=== PATIENT | female | born 2000 | race Caucasian/White ===

== ENCOUNTER 2023-01-27 20:57 | Emergency (ER) | payer OTHER, SELFPAY ==
[2023-01-27 21:00] VITALS: BP 132/86; PULSE 68; RESP 18; TEMP 36.6; O2SAT 100
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
== END 2023-01-27 22:34 | disposition home or self-care (01) ==
PROVIDERS: Emergency Provider Emergency Medicine; PCP Family Medicine
DX: S20.212A Contusion of left front wall of thorax, initial encounter (principal); W50.1XXA Accidental kick by another person, initial encounter
CPT/HCPCS: 71046; 99283

== ENCOUNTER 2023-07-18 12:03 | Outpatient (OUT) | payer SELFPAY ==
[2023-07-18 12:50] LABS: HCG Quantitative 18 mIU/mL
== END 2023-07-18 12:04 | disposition home or self-care (01) ==
LOC: LAB 12:05
PROVIDERS: PCP Family Medicine
DX: N92.6 Irregular menstruation, unspecified (principal)
CPT/HCPCS: 36415; 84702

== ENCOUNTER 2023-08-14 14:13 | Emergency (ER) | payer SELFPAY ==
[2023-08-14 14:28] VITALS: BP 122/73; PULSE 96; RESP 20; TEMP 36.6; O2SAT 99; BMI 19.6
--- NOTE | 2023-08-14 14:37 | US_ITS ---
[address] [address] Patient Name: TACOS DE LEÓN MRN: [id number] date: 2000 Sex: F Assigned Patient Location: ER Current Patient Location: ER Accession/Order Number: [id number] Exam Date: 08/14/2023 15:30 Report Date: 08/14/2023 16:35 At the request of: ANNEMARIE PUGA Procedure: US OB transvaginal EXAMINATION: US OB transvaginal HISTORY: vaginal bleeding , cramping COMPARISON: No relevant comparison available. FINDINGS: GESTATIONAL SAC: Present and normal appearing. YOLK SAC: Present and normal appearing. POLE: Present and normal appearing. CARDIAC: Present. UTERUS: Heterogeneous thickened endometrium, 14 mm. OVARIES: Right: Normal. Left: Normal. CERVIX: 4.7 cm in length and closed. CUL-DE-SAC: Normal. OTHER: None. AGE BY LMP: 8 weeks 6 days CRISTOFER BY LMP: 03/19/2024 AGE BY US CRL: Not applicable CRISTOFER BY US CRL: US/US OB transvaginal IMPRESSION: 1. Thickened heterogeneous endometrium with no intrauterine or extrauterine gestational sac; spontaneous suspected. Electronically authenticated by: DILLON SHARIF Date: 08/14/2023 16:35
--- NOTE | 2023-08-14 14:52 | ED.PREGNANC1 ---
HPI - General Chief complaint: Vaginal Bleeding Stated complaint: POST OP COMPLICATIONS Time Seen by Provider: 08/14/23 14:37 Source: patient Mode of arrival: walk-in Limitations: no limitations History of Present Illness HPI Narrative: Patient is a 22-year-old female who presents to the emergency department for vaginal pain and pelvic pain with bleeding. She was 6 weeks and 4 days ago took an pill in [place]. She states she was told she would have cramping and bleeding and she had minimal pain and bleeding over the weekend. She states for the last 2 days she has had severe pain, moderate bleeding and clotting. She has had no fevers or vomiting. No urinary symptoms. She does not have a local CUSTODIAL OPERATIONS MANAGER. Related Data Previous Rx's ?Medication ?Instructions ?Recorded hydrocodone 5 mg-acetaminophen 325 1 tab PO Q6H PRN pain 3 days #12 08/14/23 mg tablet tabs ketorolac 10 mg tablet 10 mg PO TID PRN pain #10 tabs 08/14/23 ondansetron 4 mg disintegrating 4 mg PO Q6H PRN nausea and 08/14/23 tablet vomiting #12 tabs Allergies Allergy/AdvReac Type Severity Reaction Status Date / Time No Known Drug Allergies Allergy Verified 01/27/23 21:04 Review of Systems ROS Constitutional Denies: fever or chills Ears, nose, mouth, and throat Denies: throat pain or nasal congestion Cardiovascular Denies: chest pain Respiratory Denies: shortness of breath or cough Gastrointestinal Reports: abdominal pain; Denies: nausea, vomiting or diarrhea Genitourinary Denies: painful urination Musculoskeletal Reports: back pain; Denies: neck pain Endocrine Denies: excessive urination Hematologic/Lymphatic Denies: easy bruising or easy bleeding Exam Narrative Exam Narrative: Gen.: Awake, alert, in no distress Head: Normocephalic, atraumatic ENT: Moist mucous membranes Respiratory: No respiratory distress Gastrointestinal: Abdomen is soft, nondistended and Moderately tender to palpation in the suprapubic abdomen with voluntary guarding, no rebound or McBurney's point tenderness. No flank tenderness or CVA tenderness Extremities: Moves extremities equally Psych: Normal mood and affect Neuro: No focal neuro deficit Skin: Warm, dry, intact Constitutional Vital Signs, click to edit/add: Last Vital Signs Temp 97.9 F 08/14/23 14:28 Pulse 96 H 08/14/23 14:28 Resp 20 08/14/23 14:28 BP 122/73 08/14/23 14:28 Pulse Ox 99 08/14/23 14:28 O2 Del Method Room Air 08/14/23 14:28 Course Vital Signs Vital signs: Vital Signs Temperature 97.9 F 08/14/23 14:28 Pulse Rate 96 H 08/14/23 14:28 Respiratory Rate 20 08/14/23 14:28 Blood Pressure 122/73 08/14/23 14:28 Pulse Oximetry 99 08/14/23 14:28 Oxygen Delivery Method Room Air 08/14/23 14:28 Temperature 97.9 F 08/14/23 14:28 Pulse Rate 96 H 08/14/23 14:28 Respiratory Rate 20 08/14/23 14:28 Blood Pressure 122/73 08/14/23 14:28 Pulse Oximetry 99 08/14/23 14:28 Oxygen Delivery Method Room Air 08/14/23 14:28 MDM - OB/Uterine Contractions MDM Narrative Medical decision making narrative: Patient is resting much more comfortably after intramuscular Toradol and Percocet. Labs show leukocytosis with stable hemoglobin, unremarkable urine specimen. Quantitative hCG level is 2000, patient will likely to continue with cramping and bleeding for the next several days. Ultrasound shows thickened endometrium with no evidence of intrauterine gestation. She was encouraged to continue Rodanthe and Toradol for home. Zofran given as needed. Follow-up with CUSTODIAL OPERATIONS MANAGER as needed and return to the ER if symptoms change or worsen. Medical Records Attestation: I reviewed the patient's medical records. Lab Data Attestation: I reviewed the patient's lab results. Labs: Lab Results 08/14/23 08/14/23 Range/Units 14:54 16:19 WBC 16.2 H (4.0-11.0) 10^3/uL RBC 3.73 L (4.20-5.40) 10^6/uL Hgb 10.9 L (12.0-16.0) g/dL Hct 33.6 L (36.0-48.0) % MCV 90.1 (81.0-99.0) fL MCH 29.2 (26.7-34.0) pg MCHC 32.4 (29.9-35.2) g/dL RDW 11.6 (11.0-15.0) % Plt Count 160 (150-450) 10^3/uL MPV 10.4 (9.5-13.5) fL Neut % (Auto) 86.3 H (43.0-75.0) % Lymph % (Auto) 7.0 L (20.5-60.0) % Martin % (Auto) 6.1 (1.7-12.0) % Eos % (Auto) 0.2 L (0.9-7.0) % Baso % (Auto) 0.2 (0.2-2.0) % Neut # (Auto) 13.9 H (1.4-6.5) 10^3/uL Lymph # (Auto) 1.1 L (1.2-3.8) 10^3/uL Martin # (Auto) 1.0 H (0.3-0.8) 10^3/uL Eos # (Auto) 0.0 (0.0-0.7) 10^3/uL Baso # (Auto) 0.0 (0.0-0.1) 10^3/uL Abs Immat Gran (auto) 0.04 H (0.00-0.03) 10^3/uL Imm/Tot Granulo (auto) 0.2 (0.0-0.5) % HCG, Quant 2016 mIU/mL Urine Color Yellow (YELLOW) Urine Clarity Clear (CLEAR) Urine pH 6.0 (5.0-9.0) Ur Specific [place] 1.025 (1.005-1.025) Urine Protein Negative (NEG/TRACE) mg/dL Urine Glucose (UA) Negative (NEGATIVE) mg/dL Urine Ketones Trace A (NEGATIVE) mg/dL Urine Occult Blood Small A (NEGATIVE) Urine Nitrite Negative (NEGATIVE) Urine Bilirubin Negative (NEGATIVE) Urine Urobilinogen 1.0 (0.2-1.0) EU/dL Ur Leukocyte Esterase Negative (NEGATIVE) Urine RBC 2-5 A (0-2) #/HPF Urine WBC 2-5 A (NONE SEEN) #/HPF Ur Squamous Epith Cells Few A (NONE/RARE) #/LPF Urine Crystals None seen (None Seen) #/HPF Urine Bacteria Trace A (NONE SEEN) #/HPF Urine Casts None seen (NONE SEEN) #/LPF Urine Mucus None seen (NONE SEEN) Ur Culture Indicated? No Blood Type O Positive Imaging Data US - abdomen: Attestation: I have reviewed the pertinent imaging results. Radiologist's impression: ITS Impressions Transvaginal US 08/14/23 14:37 IMPRESSION: 1. Thickened heterogeneous endometrium with no intrauterine or extrauterine gestational sac; spontaneous suspected. Electronically authenticated by: DILLON SHARIF Date: 08/14/2023 16:35 Discharge Plan Discharge Stand Alone Forms: Portal Instructions Chief Complaint: Vaginal Bleeding Clinical Impression: Incomplete , Vaginal bleeding Patient Disposition: Home, Self-Care Time of Disposition Decision: 16:46 Condition: Good Prescriptions / Home Meds: New hydrocodone-acetaminophen 5-325 mg tablet 1 tab PO Q6H PRN (Reason: pain) 3 Days Qty: 12 0RF Rx Instructions: DX: R10.9 ketorolac 10 mg tablet 10 mg PO TID PRN (Reason: pain) Qty: 10 0RF ondansetron 4 mg tablet,disintegrating 4 mg PO Q6H PRN (Reason: nausea and vomiting) Qty: 12 0RF Print Language: Georgian Instructions: Miscarriage (ED) Referrals: Scout Hallman DO [Physician] - As needed Gary Edmond MD [Primary Care Provider] - 1 week
[2023-08-14 15:08] LABS: Basophils Percent Auto 0.2 % (0.2-2.0); Eosinophils Percent Auto 0.2 % (0.9-7.0); Hematocrit 33.6 % (36.0-48.0); Hemoglobin 10.9 g/dL (12.0-16.0); Immature Granulocytes Abs Auto 0.04 10^3/uL (0.00-0.03); Immature Granulocytes Pct Auto 0.2 % (0.0-0.5); Lymphocytes Absolute Auto 1.1 10^3/uL (1.2-3.8); Mean Corpuscular HGB Conc 32.4 g/dL (29.9-35.2); Mean Corpuscular Hemoglobin 29.2 pg (26.7-34.0); Mean Corpuscular Volume 90.1 fL (81.0-99.0); Mean Platelet Volume 10.4 fL (9.5-13.5); Monocytes Percent Auto 6.1 % (1.7-12.0); Neutrophils Absolute Auto 13.9 10^3/uL (1.4-6.5); Neutrophils Percent Auto 86.3 % (43.0-75.0); Platelet Count 160 10^3/uL (150-450); Red Blood Count 3.73 10^6/uL (4.20-5.40); Red Cell Distribution Width 11.6 % (11.0-15.0); White Blood Count 16.2 10^3/uL (4.0-11.0)
[2023-08-14] MEDS: KETOROLAC TROMETHAMINE 60 MG/2 ML VIAL IM (15:15)
[2023-08-14] MEDS: OXYCODONE HCL/ACETAMINOPHEN 5MG/325MG 1 TAB PO (15:18)
[2023-08-14 15:49] LABS: HCG Quantitative 2016 mIU/mL
[2023-08-14 16:27] LABS: Bilirubin Urine NEGATIVE (NEGATIVE); Blood Urine SMALL (NEGATIVE); Clarity Urine CLEAR (CLEAR); Color Urine YELLOW (YELLOW); Glucose Urine UA NEGATIVE (NEGATIVE); Ketones Urine TRACE mg/dL (NEGATIVE); Leukocyte Esterase Urine NEGATIVE (NEGATIVE); Nitrite Urine NEGATIVE (NEGATIVE); Protein Urine NEGATIVE (NEG/TRACE); Specific Gravity Urine 1.025 (1.005-1.025)
[2023-08-14 16:28] LABS: Urine Microscopic Indicated YES
[2023-08-14 16:37] LABS: Bacteria Urine TRACE #/HPF (NONE SEEN); Cast Seen? NONE SEEN #/LPF (NONE SEEN); Crystals Seen? None Seen #/HPF (None Seen); Mucus Urine NONE SEEN (NONE SEEN); Squamous Epithelial Cell Urine FEW #/LPF (NONE/RARE)
[2023-08-14 16:38] LABS: Urine Culture Indicated NO
[2023-08-14 17:00] VITALS: BP 110/60; PULSE 84; RESP 14; TEMP 37; O2SAT 96
== END 2023-08-14 17:02 | disposition home or self-care (01) ==
PROVIDERS: Physician Assistant; Emergency Provider Emergency Medicine Emergency Medical Services; PCP Family Medicine
DX: O03.1 Delayed or excessive hemorrhage following incomplete spontaneous abortion (principal)
CPT/HCPCS: 36415; 76817; 81001; 84702; 85025; 86900; 86901; 96372; 99285